=== PATIENT | female | born 1990 | race Caucasian/White ===

== ENCOUNTER 2018-11-13 11:37 | Emergency (ER) | payer MEDICAID ==
--- NOTE | 2018-11-13 13:05 | ER Document Report ---
ED General - General Chief Complaint: Vag Bleeding, +preg <12wks Stated Complaint: VAGINAL BLEEDING Time Seen by Provider: 11/13/18 12:56 Notes: Patient is a 28-year-old female, , currently estimated to be a few weeks that presents to the emergency department for chief complaint of vaginal bleeding and cramping. Patient states she took a home test that was positive, recently, and she states she had some spotting this past , and over the weekend she passed some clots and had more significant bleeding. She denies any lightheadedness, dizziness, she is had some pelvic cramping, described as a mild ache, as a 1 out of 10 at this time. She denies having any hematuria, dysuria, difficulty urinating, fevers, chills, night sweats, chest pain or shortness of breath, no other complaints at this time. Past Medical History: Denies chronic medical conditions Past Surgical History: Cholecystectomy Social History: Admits to rare alcohol use, and cigarette use, denies illicit drug use. Family History: Reviewed and noncontributory for presenting illness Allergies: Reviewed, see documented allergy list. REVIEW OF SYSTEMS: Other than noted above, the 12 point review of systems was reviewed with the patient and were negative, all pertinent findings are included in the HPI. PHYSICAL EXAMINATION: Vital signs reviewed, nursing noted reviewed. GENERAL: Well-appearing, well-nourished and in no acute distress. HEAD: Atraumatic, normocephalic. EYES: Eyes appear normal, extraocular movements intact, sclera anicteric, conjunctiva are normal. ENT: nares patent, oropharynx clear without exudates. Moist mucous membranes. NECK: Normal range of motion, supple without lymphadenopathy LUNGS: Breath sounds clear to auscultation bilaterally and equal. No wheezes rales or rhonchi. HEART: Regular rate and rhythm without murmurs ABDOMEN: Soft, obese, nontender, normoactive bowel sounds. No rebound, guarding, or rigidity. No masses appreciated. EXTREMITIES: Nontender, good range of motion, no pitting or edema. NEUROLOGICAL: No focal neurological deficits. Moves all extremities spontaneously Motor and sensory grossly intact on exam. PSYCH: Normal mood, normal affect. SKIN: Warm, Dry, normal turgor, no rashes or lesions noted on exposed skin TRAVEL OUTSIDE OF THE [place] IN LAST 30 DAYS: No - Related Data Allergies/Adverse Reactions: No Known Allergies Allergy (Verified 11/13/18 11:39) Past Medical History - Social History Smoking Status: Current Some Day Smoker Frequency of alcohol use: None Drug Abuse: None Family History: Reviewed & Not Pertinent Patient has suicidal ideation: No Patient has homicidal ideation: No Renal/ Medical History: Denies: Hx Peritoneal Dialysis Past Surgical History: Reports: Hx Cholecystectomy Physical Exam - Vital signs Vitals: Temp Pulse Resp BP Pulse Ox 99.2 F 108 H 16 120/75 97 11/13/18 11:48 11/13/18 11:48 11/13/18 11:48 11/13/18 11:48 11/13/18 11:48 Course - Re-evaluation Re-evalutation: Patient seen and examined vital signs reviewed. Laboratory data and imaging were ordered as appropriate for the patient's presenting symptoms and complaint, with consideration of any critical or life threatening conditions that may be associated with their obtained history and exam as noted above. Results were reviewed when available and demonstrated negative quantitative hCG, urinalysis was positive for blood, but otherwise negative, likely contaminant from menstrual bleeding The patient was re-evaluated and was stable, I did cancel the patient's pelvic ultrasound as her hCG is negative, patient is either experiencing a normal menstrual period versus complete miscarriage at this point. Evaluation was most consistent with vaginal bleeding Results were discussed with the patient at this point, after careful consideration I feel that that patient can be discharged from the emergency department, the patient was educated treatments and reasons to return to the emergency department based on their presumed diagnosis as noted above, they were advised to followup with a primary care physician in 2-3 days. Patient was agreeable to plan of care. *Note is created using voice recognition software and may contain spelling, syntax or grammatical errors. Laboratory 11/13/18 11/13/18 11/13/18 13:44 13:44 13:44 Beta HCG, Quant < 2.39 Total Beta HCG NEGATIVE Urine Color YELLOW Urine Appearance CLOUDY Urine pH 9.0 Ur Specific [place] 1.014 Urine Protein NEGATIVE Urine Glucose (UA) NEGATIVE Urine Ketones NEGATIVE Urine Blood MODERATE H Urine Nitrite NEGATIVE Urine Bilirubin NEGATIVE Urine Urobilinogen NEGATIVE Ur Leukocyte Esterase NEGATIVE Urine WBC (Auto) 2 Urine RBC (Auto) 25 Urine Bacteria (Auto) TRACE Squamous Epi Cells Auto 1 Urine Mucus (Auto) RARE Urine Ascorbic Acid NEGATIVE Blood Type A POSITIVE Rhogam Indicated RHOGAM NOT INDICATED - Vital Signs Vital signs: Temp Pulse Resp BP Pulse Ox 99.2 F 108 H 16 120/75 97 11/13/18 11:48 11/13/18 11:48 11/13/18 11:48 11/13/18 11:48 11/13/18 11:48 - Laboratory Laboratory results interpreted by me: 11/13/18 13:44 Urine Blood MODERATE H Discharge - Discharge Clinical Impression: Vaginal bleeding Condition: Stable Disposition: HOME, SELF-CARE Instructions: Miscarriage ([facility]) Additional Instructions: Please follow-up with ACCESS RN, if you develop fevers, or worsening pain, or lightheadedness, do not hesitate to return to the emergency department to be reevaluated. Referrals: [facility] [Provider Group] - Follow up in 3-5 days
[2018-11-13 14:18] LABS: APPEARANCE,URINE CLOUDY; BILIRUBIN,URINE NEGATIVE (NEGATIVE); COLOR,URINE YELLOW; GLUCOSE, URINE NEGATIVE (NEGATIVE); KETONES,URINE NEGATIVE (NEGATIVE); LEUKOCYTE ESTERASE,URINE NEGATIVE (NEGATIVE); NITRITE,URINE NEGATIVE (NEGATIVE); PROTEIN,URINE NEGATIVE (NEGATIVE); URINE SPECIFIC GRAVITY 1.014; UROBILINOGEN,URINE NEGATIVE mg/dL (<2.0)
[2018-11-13 16:02] VITALS: BP 119/78
== END 2018-11-13 16:09 | disposition home or self-care (01) ==
LOC: ER 11:37
DX: N93.9 Abnormal uterine and vaginal bleeding, unspecified (principal); R10.2 Pelvic and perineal pain; F17.210 Nicotine dependence, cigarettes, uncomplicated
CPT/HCPCS: 36415; 81001; 84702; 86900; 86901; 99284